=== PATIENT | male | born 1985 | race Caucasian/White ===

== ENCOUNTER 2016-11-21 01:36 | Emergency (ER) | payer OTHER ==
[2016-11-21] MEDS ORDERED: LIDOCAINE W/EPINEPHRINE 1% 20ML VIAL As Ordered ONE (04:04)
[2016-11-21] MEDS ORDERED: LIDOCAINE W/EPINEPHRINE 1% 20ML VIAL SC ONE (04:15)
[2016-11-21] MEDS ORDERED: PERI0.126 MT (05:40)
[2016-11-21 06:26] VITALS: BP 135/80
== END 2016-11-21 06:29 | disposition home or self-care (01) ==
LOC: M ED 01:36
DX: S01.511A Laceration without foreign body of lip, initial encounter (principal); Y04.0XXA Assault by unarmed brawl or fight, initial encounter; Y92.89 Other specified places as the place of occurrence of the external cause; Y93.89 Activity, other specified; Y99.8 Other external cause status